=== PATIENT | female | born 1950 | race Caucasian/White ===

== ENCOUNTER → 2017-08-21 | Outpatient (CLI) | payer OTHER, MEDICARE | LOC: FIMAGING 11:54 | PROVIDERS: ATTEND Family Medicine | DX: Z12.31 Encounter for screening mammogram for malignant neoplasm of breast (principal); Z85.3 Personal history of malignant neoplasm of breast ==

== ENCOUNTER 2018-04-11 09:11 | Emergency (ER) | payer OTHER, MEDICARE ==
--- NOTE | 2018-04-11 10:09 | EDPHY ---
H & P Stated Complaint: RLQ pn x 2 days, getting worse c nausea. Denies constipation. Time Seen by Provider: 04/11/18 10:07 HPI/ROS: HPI: This is a 67-year-old female who presents with Chief Complaint: RLQ pn x 2 days, getting worse c nausea. Denies constipation. Location: Right lower quadrant Quality: Pain Duration: Started yesterday afternoon Signs and Symptoms: no fever, no nausea, no vomiting, no hematemesis, no blood in stool, no abdominal bloating, no diarrhea, no back pain, no urinary symptoms , no vaginal bleeding/discharge, no indigestion, no chest pain, no shortness of breath Timing: Acute, worsening Severity: [id number] Context: Patient presents with sudden onset yesterday afternoon of periumbilical pain after eating lunch that consisted of leftover pasta and an apple. She reports that she feels bloated. Yesterday evening the pain moved to the right lower quadrant and has remained constant. Was able to eat breakfast this morning at 8:00 a.m. without any difficulty. Reports mild nausea but no vomiting, fever, diarrhea, back pain, urinary symptoms. She is postmenopausal. Patient reports that she did participate in yoga yesterday but nothing more aggressive than usual. History of . Patient reports that she had a bowel movement yesterday. Denies indigestion, belching. Modifying Factors: None Comment: ROS: A comprehensive 10 system review of systems is otherwise negative aside from elements mentioned in the history of present illness. MEDICAL/SURGICAL/SOCIAL HISTORY: Medical history: bicuspid/tricuspid "leakage", history of breast cancer Surgical history: , Bunionectomy, R arm lymph node removal. Social history: Never smoked. . Family history noncontributory. CONSTITUTIONAL: Nontoxic-appearing elderly white female, awake and alert, no obvious distress HEENT: Atraumatic and normocephalic, PERRL, EOMI. Nares patent; no rhinorrhea; no nasal mucosal edema. Tympanic membranes clear. Oropharynx clear, no exudate and moist pink mucosa. Airway patent. No lymphadenopathy. No meningismus. Cardiovascular: Normal S1/S2, regular rate, regular rhythm, without murmur rub or gallop. PULMONARY/CHEST: Symmetrical and nontender. Clear to auscultation bilaterally. Good air movement. No accessory muscle usage. ABDOMEN: Soft, nondistended, right lower quadrant tenderness to deep palpation that is mild in nature, no rebound, no guarding, no peritoneal signs, no masses or organomegaly. No CVAT. EXTREMITIES: 2/2 pulses, strength 5/5, no deformities, no clubbing, no cyanosis or edema. NEUROLOGICAL: no focal neuro deficits. GCS 15. SKIN: Warm and dry, no erythema. no rash. Good capillary refill. Source: Patient Exam Limitations: No limitations - Personal History Current Tetanus/Diphtheria Vaccine: Yes - Medical/Surgical History Hx Asthma: No Hx Chronic Respiratory Disease: No Hx Diabetes: No Hx Cardiac Disease: No Hx Renal Disease: No Hx Cirrhosis: No Hx Alcoholism: No Hx HIV/AIDS: No Hx Splenectomy or Spleen Trauma: No Other PMH: C-sectiob, Bunionectomy, R arm lymphectomy. bicuspid/tricuspid "leakage". - Social History Smoking Status: Never smoked Constitutional: Initial Vital Signs Temperature (C) 36.7 C 04/11/18 09:31 Heart Rate 82 04/11/18 09:31 Respiratory Rate 16 04/11/18 09:31 Blood Pressure 129/73 H 04/11/18 09:31 O2 Sat (%) 97 04/11/18 09:31 O2 Delivery Mode Room Air Allergies/Adverse Reactions: No Known Allergies Allergy (Verified 04/11/18 09:31) Home Medications: Medication Instructions Recorded Letrozole [Femara 2.5 mg (RX)] 2.5 mg PO DAILY 10/14/11 Medical Decision Making - Diagnostics Imaging Results: Imaging Impressions Abdomen CT 04/11/18 10:14 Impression: 1. Constipation 2. Normal appendix. 3. Trace of pelvic free fluid of undetermined etiology. Results called to Mariela Chery at 11:32 AM. General information for patients regarding this examination can be found at [email or web address]. If you have questions or comments about this report, please contact me at (hospital) or [phone] (cell). ED Course/Re-evaluation: Vital signs reviewed and stable upon arrival. No systemic signs. IV access and laboratory studies along with CT abdomen and pelvis scan to evaluate for appendicitis ordered Patient politely declines any IV fluids, pain medications or antiemetics initially 1058: Urinalysis shows 1+ blood but no kerry signs of infection. 1105: Labs reviewed. No leukocytosis/anemia/platelet dysfunction/metabolic derangement/transaminitis/acute kidney injury/pancreatitis 1134: Called by radiologist, Dr. Ireland, who reports that CT abdomen and pelvis scan shows no signs of appendicitis, diverticulitis, obstruction, colitis , stone. + moderate constipation Given bowel regimen including push fluids, MiraLax, stool softeners, increase fiber. This patient was seen under the supervision of my secondary supervising physician. I evaluated care for this patient independently. Discussed this patient with Dr. Yancey. Differential Diagnosis: Abdominal pain including but not limited to appendicitis, cholecystitis, gastritis and urinary tract infection. - Data Points Laboratory Results: Laboratory Results 04/11/18 10:30 04/11/18 10:30 04/11/18 04/11/18 04/11/18 10:30 10:30 10:30 WBC 6.70 10^3/uL 10^3/uL (3.80-9.50) RBC 4.47 10^6/uL 10^6/uL (4.18-5.33) Hgb 13.9 g/dL g/dL (12.6-16.3) Hct 41.5 % % (38.0-47.0) MCV 92.8 fL fL (81.5-99.8) MCH 31.1 pg pg (27.9-34.1) MCHC 33.5 g/dL g/dL (32.4-36.7) RDW 11.7 % % (11.5-15.2) Plt Count 258 10^3/uL 10^3/uL (150-400) MPV 8.7 fL fL (8.7-11.7) Neut % (Auto) 79.8 % H % (39.3-74.2) Lymph % (Auto) 11.2 % L % (15.0-45.0) [place] % (Auto) 7.5 % % (4.5-13.0) Eos % (Auto) 0.6 % % (0.6-7.6) Baso % (Auto) 0.6 % % (0.3-1.7) Nucleat RBC Rel Count 0.0 % % (0.0-0.2) Absolute Neuts (auto) 5.35 10^3/uL 10^3/uL (1.70-6.50) Absolute Lymphs (auto) 0.75 10^3/uL L 10^3/uL (1.00-3.00) Absolute Monos (auto) 0.50 10^3/uL 10^3/uL (0.30-0.80) Absolute Eos (auto) 0.04 10^3/uL 10^3/uL (0.03-0.40) Absolute Basos (auto) 0.04 10^3/uL 10^3/uL (0.02-0.10) Absolute Nucleated RBC 0.00 10^3/uL 10^3/uL (0-0.01) Immature Gran % 0.3 % % (0.0-1.1) Immature Gran # 0.02 10^3/uL 10^3/uL (0.00-0.10) Sodium 134 mEq/L L mEq/L (135-145) Potassium 4.1 mEq/L mEq/L (3.3-5.0) Chloride 99 mEq/L mEq/L (97-110) Carbon Dioxide 25 mEq/l mEq/l (22-31) Anion Gap 10 mEq/L mEq/L (6-14) BUN 12 mg/dL mg/dL (7-23) Creatinine 0.8 mg/dL mg/dL (0.6-1.0) Estimated GFR > 60 Glucose 144 mg/dL H mg/dL (70-100) Calcium 9.7 mg/dL mg/dL (8.5-10.4) Total Bilirubin 1.0 mg/dL mg/dL (0.1-1.4) Conjugated Bilirubin 0.2 mg/dL mg/dL (0.0-0.5) Unconjugated Bilirubin 0.8 mg/dL mg/dL (0.0-1.1) AST 27 IU/L IU/L (14-46) ALT 41 IU/L IU/L (9-52) Alkaline Phosphatase 78 IU/L IU/L (38-126) Total Protein 7.4 g/dL g/dL (6.3-8.2) Albumin 4.5 g/dL g/dL (3.5-5.0) Lipase 85 IU/L IU/L (23-300) Urine Color YELLOW Urine Appearance CLEAR Urine pH 6.0 (5.0-7.5) Ur Specific [place] 1.008 (1.002-1.030) Urine Protein NEGATIVE (NEGATIVE) Urine Ketones NEGATIVE (NEGATIVE) Urine Blood 1+ H (NEGATIVE) Urine Nitrate NEGATIVE (NEGATIVE) Urine Bilirubin NEGATIVE (NEGATIVE) Urine Urobilinogen NEGATIVE EU EU (0.2-1.0) Ur Leukocyte Esterase NEGATIVE (NEGATIVE) Urine RBC 1-3 /hpf /hpf (0-3) Urine WBC 1-3 /hpf /hpf (0-3) Ur Epithelial Cells TRACE /lpf /lpf (NONE-1+) Urine Glucose NEGATIVE (NEGATIVE) Departure - Departure Disposition: Home, Routine, Self-Care Clinical Impression: Constipation by delayed colonic transit Condition: Good Instructions: Simethicone (By mouth), Polyethylene Glycol 3350 (By mouth), Senna (By mouth), Constipation (ED), High Fiber Diet (ED) Additional Instructions: Consume a minimum of 8-10 glasses of water or electrolyte fluid replacement drinks that include Gatorade, Powerade, Pedialyte. Eat a bland diet for the next 48 hours and then slowly advance as tolerated. Take MiraLax daily as needed for constipation. Take senna twice daily as needed for constipation. Take Mylicon/Gas-X as needed for abdominal gas pain. Return to the Emergency Room if symptoms do not resolve in the next 48-72 hours , you spike a fever > 102 F, or experience intractable abdominal pain/nausea/ vomiting. Referrals: Nadine Orellana MD [Primary Care Provider] - As per Instructions
[2018-04-11] MEDS ORDERED: IOPAMIDOL (ISOVUE-300) 100 ML BTL ONE (10:35)
[2018-04-11 10:49] LABS: PLATELET COUNT 258 10^3/uL (150-400)
[2018-04-11 11:56] VITALS: BP 140/87
== END 2018-04-11 11:55 | disposition home or self-care (01) ==
DX: R10.31 Right lower quadrant pain (principal); K59.00 Constipation, unspecified
CPT/HCPCS: 74177; 99285; Q9967

== ENCOUNTER → 2018-08-30 | Outpatient (CLI) | payer MEDICARE, OTHER | LOC: FIMAGING 11:32 | PROVIDERS: ATTEND Physician Assistant | DX: Z12.31 Encounter for screening mammogram for malignant neoplasm of breast (principal) ==

== ENCOUNTER → 2018-09-17 | Outpatient (CLI) | payer OTHER | LOC: BMCIMAGING 10:23 | PROVIDERS: ATTEND Physician Assistant | DX: Z13.820 Encounter for screening for osteoporosis (principal); M85.89 Other specified disorders of bone density and structure, multiple sites ==